=== PATIENT | male | born 1950 | race Caucasian/White ===

== ENCOUNTER 2019-09-16 12:26 | Emergency (ER) | payer MEDICARE, BC ==
--- NOTE | 2019-09-16 12:56 | EDM.PDOC ---
ED HPI GENERAL MEDICAL PROBLEM - General Stated Complaint: something hit his nose Time Seen by Provider: 09/16/19 12:40 Source of Information: Reports: Patient - History of Present Illness INITIAL COMMENTS - FREE TEXT/NARRATIVE: Mookie is a 69 y/o male who was working in his shop and a power tool case fell off a shelf and hit him in the nose when his glasses fell off. No LOC or other injuries. Past Medical History HEENT History: Reports: Allergic Rhinitis Cardiovascular History: Reports: High Cholesterol Gastrointestinal History: Reports: GERD Review of Systems - Review of Systems Review Of Systems: See Below Constitutional: Reports: No Symptoms Eyes: Reports: No Symptoms Ears: Reports: No Symptoms, Previous Injury Nose: Reports: Other (laceration) Mouth/Throat: Reports: No Symptoms Respiratory: Reports: No Symptoms Cardiovascular: Reports: No Symptoms GI/Abdominal: Reports: No Symptoms Genitourinary: Reports: No Symptoms Musculoskeletal: Reports: No Symptoms Skin: Reports: No Symptoms Neurological: Reports: No Symptoms Psychiatric: Reports: No Symptoms ED EXAM, GENERAL - Physical Exam Exam: See Below Exam Limited By: No Limitations General Appearance: Alert, WD/WN, No Apparent Distress (Adult male, NAD.) Eye Exam: Bilateral Eye: PERRL Ears: Hearing Grossly Normal Nose: Other (note 2cm x 2cm laceration over bridge of nose, not bleeding. no deformity to nose.) Neck: Normal Inspection Respiratory/Chest: No Respiratory Distress Cardiovascular: Other (Not examined) GI/Abdominal: Soft (Male) Exam: Deferred Rectal (Males) Exam: Deferred Back Exam: Other (Not examined) Extremities: Normal Inspection, Normal Range of Motion, Normal Capillary Refill Neurological: Alert, Oriented, CN II-XII Intact Psychiatric: Normal Affect, Normal Mood Skin Exam: Warm, Dry, Intact, Normal Color Lymphatic: No Adenopathy ED TRAUMA PROCEDURES - Laceration/Wound Repair Nose Lac/Wound Length In cm: 2 (2 cm x 2 cm, over bridge of nose) Appearance: Superficial, Clean Anesthetic Type: Other (None) Skin Prep: Saline Exploration/Debridement/Repair: Other (Wound cleansed well with sterile saline) Closed With: Steri-Strips ( and Benzoin) Sterile Dressing Applied: None Tetanus Status Addressed: No Complications: No Course - Vital Signs Text/Narrative:: The patient was seen by the [facility]. The laceration on the bridge of his nose with cleansed and dressed with steri-strips. He tolerated the dressing well. Questions answered. Discharge instructions were given and he left the ER in stable condition. Departure - Departure Time of Disposition: 12:51 Disposition: Home, Self-Care 01 Condition: Good Clinical Impression: Laceration of nose - Discharge Information *PRESCRIPTION DRUG MONITORING PROGRAM REVIEWED*: Not Applicable *COPY OF PRESCRIPTION DRUG MONITORING REPORT IN PATIENT BENOIT: Not Applicable Instructions: Sterile Tape Wound Care Forms: ED Department Discharge Additional Instructions: -Keep wound dry, allow steri strips to wear off -Watch for infection and follow up with PCP if needed -Return to the ER for any concerns -You may use Acetaminophen as needed for pain, in addition to your daily Aleve
== END 2019-09-16 13:00 | disposition home or self-care (01) ==
LOC: VM.ED 12:26
DX: S01.21XA Laceration without foreign body of nose, initial encounter (principal); W20.8XXA Other cause of strike by thrown, projected or falling object, initial encounter
CPT/HCPCS: 99283